=== PATIENT | male | born 1990 | race Caucasian/White ===

== ENCOUNTER 2018-03-18 07:54 | Emergency (ER) | payer OTHER ==
[2018-03-18 08:01] VITALS: BP 125/62
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
== END 2018-03-18 08:55 | disposition home or self-care (01) ==
LOC: ER 07:54
DX: S46.912A Strain of unspecified muscle, fascia and tendon at shoulder and upper arm level, left arm, initial encounter (principal); M25.522 Pain in left elbow; X50.9XXA Other and unspecified overexertion or strenuous movements or postures, initial encounter; Y93.B9 Activity, other involving muscle strengthening exercises
CPT/HCPCS: 99283